=== PATIENT | female | born 1940 | race Caucasian/White ===

== ENCOUNTER 2017-09-25 04:41 | Emergency (ER) | payer MEDICARE, OTHER ==
[~2017-09-25] VITALS: Ht 162.6 cm; Wt 63.5 kg
[~2017-09-25 04:41] MED LIST: ASPI81EC; ATOR10; ATOR20 PO; DILT180; DOCSEN; ENAL2.5 PO; HYDACE5 PO; METO25ER PO; RISE35 PO; WARF3 PO; WARF4 PO; WARF5
[2017-09-25] MEDS ORDERED: Norco 5-325 Ta1 EACH PO (05:17)
== END 2017-09-25 05:29 | disposition home or self-care (01) ==
LOC: ER 04:41
DX: M54.41 Lumbago with sciatica, right side (principal); I10 Essential (primary) hypertension; I50.9 Heart failure, unspecified; Z86.73 Personal history of transient ischemic attack (TIA), and cerebral infarction without residual deficits; Z87.891 Personal history of nicotine dependence; Z79.899 Other long term (current) drug therapy; Z79.01 Long term (current) use of anticoagulants
CPT/HCPCS: 99283

== ENCOUNTER 2019-03-11 21:53 | Inpatient (IN) | payer MEDICARE, OTHER ==
[~2019-03-11] VITALS: Ht 162.6 cm; Wt 72.2 kg
[~2019-03-11 21:53] MED LIST changes: +Norco 5-325 Ta1 EACH PO
[2019-03-12 01:22] LABS: BASOPHILS ABSOLUTE AUTO 0.03 K/mm3 (0.00-0.23); BASOPHILS PERCENT AUTO 0 % (0-2); EOSINOPHILS ABSOLUTE AUTO 0.03 K/mm3 (0.00-0.68); EOSINOPHILS PERCENT AUTO 0 % (0-6); Hematocrit 43.7 % (33.0-51.0); Hemoglobin 14.7 g/dL (11.5-16.0); IMMATURE GRAN ABSOLUTE AUTO 0.07 K/mm3 (0.00-0.10); IMMATURE GRAN PERCENT AUTO 0 % (0-1); LYMPHOCYTES ABSOLUTE AUTO 0.69 K/mm3 (0.84-5.20); LYMPHOCYTES PERCENT AUTO 4 % (21-46); MONOCYTES ABSOLUTE AUTO 0.81 K/mm3 (0.16-1.47); MONOCYTES PERCENT AUTO 5 % (4-13); Mean Corpuscular HGB 31.7 pg (26.0-34.0); Mean Corpuscular HGB Conc 33.6 g/dL (31.5-36.5); Mean Corpuscular Volume 94 fL (80-100); NEUTROPHILS ABSOLUTE AUTO 15.08 K/mm3 (1.96-9.15); NEUTROPHILS PERCENT AUTO 90 % (41-73); Platelet Count 320 K/mm3 (150-400); RDW Coefficient Variation 12.1 % (11.7-14.2); RDW Standard Deviation 42.2 fL (35.1-46.3); Red Blood Cell Count 4.63 M/mm3 (3.80-5.20); White Blood Cell Count 16.71 K/mm3 (4.00-11.30)
[2019-03-12 01:37] LABS: International Normalized Ratio 2.18; Prothrombin Time Results 22.3 Sec (9.7-11.5)
[2019-03-12 01:39] LABS: Alanine Aminotransfer (ALT/SGP 45 U/L (12-78); Albumin, Blood 3.4 g/dL (3.4-5.0); Albumin/Globulin Ratio 0.8 (0.8-1.8); Alk Phos 67 U/L (50-136); Anion Gap 7 mmol/L (6-16); Aspartate Aminotrans (AST/SGOT 30 U/L (12-37); Bilirubin, Total 0.6 mg/dL (0.1-1.0); Blood Urea Nitrogen 13 mg/dL (8-24); Bun/Creatinine Ratio 14.7 (12.0-20.0); CO2, Blood 25 mmol/L (21-32); Calcium, Blood 8.8 mg/dL (8.5-10.1); Chloride, Blood 108 mmol/L (98-108); Creatinine, Blood 0.89 mg/dL (0.40-1.00); Globulin, Blood 4.2 g/dL (2.2-4.0); Glomerular Filtration Rate >60 (60-); Glucose, Blood 163 mg/dL (70-99); Potassium, Blood 4.2 mmol/L (3.5-5.5); Sodium, Blood 140 mmol/L (136-145); Total Protein, Blood 7.6 g/dL (6.4-8.2)
[2019-03-12] MEDS ORDERED: METF500 PO (02:03)
[2019-03-12] MEDS ORDERED: THERA1 EACH PO (02:07)
[2019-03-12] MEDS ORDERED: VITAMIN D33000 UNI1 PO (02:10)
--- NOTE | 2019-03-12 04:49 | NUR ---
SHIFT SUMMARY PT IS A/O X4. SHE HAS BEEN NPO PER ORDERS. HAS BEEN BEDREST D/T PAIN WITH MOVEMENT IN R HIP. PT WAS GIVEN FENTANYL FOR PAIN AND REPORTS FEELING COMFORTABLE AT REST. PT REPOSITIONED SEVERAL TIMES THIS SHIFT. ASSISTED WITH ADL'S PRN.
[2019-03-12 04:50] LABS: Hematocrit 42.3 % (33.0-51.0); Hemoglobin 13.9 g/dL (11.5-16.0); Mean Corpuscular HGB 31.7 pg (26.0-34.0); Mean Corpuscular HGB Conc 32.9 g/dL (31.5-36.5); Mean Platelet Volume 9.3 fL (9.1-12.4); Platelet Count 296 K/mm3 (150-400); RDW Coefficient Variation 12.1 % (11.7-14.2); Red Blood Cell Count 4.38 M/mm3 (3.80-5.20); White Blood Cell Count 16.25 K/mm3 (4.00-11.30)
[2019-03-12 04:56] LABS: Mean Corpuscular Volume 97 fL (80-100)
[2019-03-12 05:14] LABS: Alanine Aminotransfer (ALT/SGP 39 U/L (12-78); Albumin, Blood 3.1 g/dL (3.4-5.0); Albumin/Globulin Ratio 0.8 (0.8-1.8); Alk Phos 61 U/L (50-136); Anion Gap 8 mmol/L (6-16); Aspartate Aminotrans (AST/SGOT 35 U/L (12-37); Bilirubin, Total 0.8 mg/dL (0.1-1.0); Blood Urea Nitrogen 13 mg/dL (8-24); CO2, Blood 22 mmol/L (21-32); Calcium, Blood 8.3 mg/dL (8.5-10.1); Chloride, Blood 110 mmol/L (98-108); Creatinine, Blood 0.87 mg/dL (0.40-1.00); Globulin, Blood 3.8 g/dL (2.2-4.0); Glomerular Filtration Rate >60 (60-); Glucose, Blood 167 mg/dL (70-99); Potassium, Blood 4.5 mmol/L (3.5-5.5); Sodium, Blood 140 mmol/L (136-145); Total Protein, Blood 6.9 g/dL (6.4-8.2)
--- NOTE | 2019-03-12 18:23 | NUR ---
SUMMARY PT PAINFUL TO RIGHT GROIN AND BACK WITH INCREASED PAIN WITH MOVEMENT. PT DOZES AFTER PAIN MEDS GIVEN. PT AWAE OF PLANS FOR NPO AFTR 2400 AND REPEAT BLOOD WORK TO DETERMINE IF WILL HAVE SURGERY TOMORROW. PT VOIDING PER BEDPAN. AIMEE PO FOOD AND FLUIDS
[2019-03-12 21:24] LABS: International Normalized Ratio 2.44; Prothrombin Time Results 24.8 Sec (9.7-11.5)
--- NOTE | 2019-03-13 02:59 | NUR ---
While taking oral pain medication, patient aspirated on the water. patient was able to clear her air way within seconds. patient initially had exp wheeze that resolved within 5 mins. will continue to monitor.
[2019-03-13 04:27] LABS: BASOPHILS ABSOLUTE AUTO 0.04 K/mm3 (0.00-0.23); BASOPHILS PERCENT AUTO 0 % (0-2); EOSINOPHILS PERCENT AUTO 2 % (0-6); Hematocrit 39.9 % (33.0-51.0); Hemoglobin 13.2 g/dL (11.5-16.0); IMMATURE GRAN ABSOLUTE AUTO 0.05 K/mm3 (0.00-0.10); IMMATURE GRAN PERCENT AUTO 0 % (0-1); LYMPHOCYTES ABSOLUTE AUTO 1.28 K/mm3 (0.84-5.20); LYMPHOCYTES PERCENT AUTO 9 % (21-46); MONOCYTES PERCENT AUTO 10 % (4-13); Mean Corpuscular HGB 31.7 pg (26.0-34.0); Mean Corpuscular HGB Conc 33.1 g/dL (31.5-36.5); Mean Corpuscular Volume 96 fL (80-100); Mean Platelet Volume 8.9 fL (9.1-12.4); NEUTROPHILS PERCENT AUTO 78 % (41-73); Platelet Count 258 K/mm3 (150-400); RDW Coefficient Variation 12.4 % (11.7-14.2); RDW Standard Deviation 44.2 fL (35.1-46.3); Red Blood Cell Count 4.16 M/mm3 (3.80-5.20); White Blood Cell Count 14.27 K/mm3 (4.00-11.30)
[2019-03-13 04:40] LABS: International Normalized Ratio 1.66
[2019-03-13 04:43] LABS: Alanine Aminotransfer (ALT/SGP 33 U/L (12-78); Albumin, Blood 2.6 g/dL (3.4-5.0); Albumin/Globulin Ratio 0.7 (0.8-1.8); Alk Phos 54 U/L (50-136); Anion Gap 5 mmol/L (6-16); Aspartate Aminotrans (AST/SGOT 26 U/L (12-37); Bilirubin, Total 1.3 mg/dL (0.1-1.0); Blood Urea Nitrogen 13 mg/dL (8-24); Bun/Creatinine Ratio 15.1 (12.0-20.0); CO2, Blood 24 mmol/L (21-32); Calcium, Blood 7.9 mg/dL (8.5-10.1); Chloride, Blood 109 mmol/L (98-108); Creatinine, Blood 0.86 mg/dL (0.40-1.00); Globulin, Blood 3.8 g/dL (2.2-4.0); Glomerular Filtration Rate >60 (60-); Glucose, Blood 140 mg/dL (70-99); Potassium, Blood 4.3 mmol/L (3.5-5.5); Sodium, Blood 138 mmol/L (136-145); Total Protein, Blood 6.4 g/dL (6.4-8.2)
--- NOTE | 2019-03-13 04:53 | NUR ---
PATIENT MEDICATED PER EMAR WITH MODERATE RESULTS THAT DID ALLOW PATIENT TO GET 3-4 HOURS OF SLEEP. AFTER INCIDENT OF CHOKING WITH WATER, PATIENT IS NOW ON 2L NC, BIOX 93%. NON-PRODUCTIVE OCCASIONAL COUGH. DIFFICULT FOR PT TO FIND A POSITION OF COMFORT, AT TIMES HER BACK PAIN WAS MORE THAN HER HIP PAIN. USING BEDPAN WITH SOME DIFFICULTY DUE TO RT HIP FX. NO OTHER ACUTE CHANGES.
[2019-03-13 05:28] LABS: Prothrombin Time Results 17.3 Sec (9.7-11.5)
--- NOTE | 2019-03-13 18:22 | NUR ---
SHIFT SUMMARY PATIENT STATES BACK/ L HIP PAIN AT TOLERABLE LEVEL W/PO AND IV PAIN MED. CIRC CHECKS TO RLE WNL. TAKING PO. PO FLUIDS ENCOURAGED. HOSPITALIST CALLED AND MESSAGE LEFT FOR IVF ORDER; AWAITING REPLY. REPOSITIONED TOLERATED. SPOUSE AND FAMILY AT BEDSIDE T/O SHIFT. NO ACUTE CHANGES OR C/O. SPOKE W/HOSPITALIST EARLIER IN SHIFT- NO ORDER FOR VIT K AT THIS TIME. RECHECK INR IN AM.
[2019-03-14 04:36] LABS: BASOPHILS ABSOLUTE AUTO 0.02 K/mm3 (0.00-0.23); BASOPHILS PERCENT AUTO 0 % (0-2); EOSINOPHILS ABSOLUTE AUTO 0.52 K/mm3 (0.00-0.68); EOSINOPHILS PERCENT AUTO 4 % (0-6); Hematocrit 38.6 % (33.0-51.0); Hemoglobin 12.9 g/dL (11.5-16.0); IMMATURE GRAN ABSOLUTE AUTO 0.05 K/mm3 (0.00-0.10); IMMATURE GRAN PERCENT AUTO 0 % (0-1); LYMPHOCYTES ABSOLUTE AUTO 1.32 K/mm3 (0.84-5.20); LYMPHOCYTES PERCENT AUTO 9 % (21-46); MONOCYTES ABSOLUTE AUTO 1.62 K/mm3 (0.16-1.47); MONOCYTES PERCENT AUTO 12 % (4-13); Mean Corpuscular HGB 31.6 pg (26.0-34.0); Mean Corpuscular HGB Conc 33.4 g/dL (31.5-36.5); Mean Corpuscular Volume 95 fL (80-100); Mean Platelet Volume 9.1 fL (9.1-12.4); NEUTROPHILS ABSOLUTE AUTO 10.44 K/mm3 (1.96-9.15); NEUTROPHILS PERCENT AUTO 75 % (41-73); Platelet Count 236 K/mm3 (150-400); RDW Coefficient Variation 12.2 % (11.7-14.2); RDW Standard Deviation 42.4 fL (35.1-46.3); Red Blood Cell Count 4.08 M/mm3 (3.80-5.20); White Blood Cell Count 13.97 K/mm3 (4.00-11.30)
[2019-03-14 04:54] LABS: International Normalized Ratio 1.16; Prothrombin Time Results 12.3 Sec (9.7-11.5)
[2019-03-14 04:59] LABS: Anion Gap 5 mmol/L (6-16); Blood Urea Nitrogen 11 mg/dL (8-24); Bun/Creatinine Ratio 13.9 (12.0-20.0); CO2, Blood 24 mmol/L (21-32); Calcium, Blood 8.1 mg/dL (8.5-10.1); Chloride, Blood 105 mmol/L (98-108); Creatinine, Blood 0.79 mg/dL (0.40-1.00); Glomerular Filtration Rate >60 (60-); Glucose, Blood 131 mg/dL (70-99); Potassium, Blood 4.2 mmol/L (3.5-5.5); Sodium, Blood 134 mmol/L (136-145)
--- NOTE | 2019-03-14 05:33 | NUR ---
PATIENT HAS HAD BETTER PAIN CONTROL THAN LAST NIGHT. SHE HAS RESTED BETWEEN NEEDING THE BEDPAN. NPO SINCE MIDNIGHT IN ANTICIPATION FOR SURGERY TODAY. nO ACUTE CHANGES.
--- NOTE | 2019-03-14 10:05 | NUR ---
PATIENT TO DAY SURGERY AT THIS TIME. FAMILY ACCOMPANYING.
--- NOTE | 2019-03-14 11:10 | NUR ---
1015 PT IN SDS VIA BED. AND DAUGHTER AT BEDSIDE.OXYGEN ON 3 L N/C LUNGS DECREASED. PRE OP TEACHING DONE. RIGHT HEARING AID LEFT IN EAR TO OR4 WITH CONTAINER. DENTURES LEFT IN CONTAINER SENT WITH PATIENT GLASSES TAKEN TO PACU.
--- NOTE | 2019-03-14 14:00 | NUR ---
PATIENT RETURNED TO ROOM FROM PACU AT THIS TIME. AWAKE, GROGGY. DENIES PAIN, NAUSEA. VSS. BIOX 96% ON 4L O2 PER NC. LS CLEAR. HR IRREG (HX AFIB.) BT'S HYPO. MOVES FEET; CIRC CHECKS WNL. R HIP WITH AQUACEL, D&I. CRYOTHERAPY AND PAS IN PLACE. CONT TO MONITOR.
--- NOTE | 2019-03-14 15:13 | NUR ---
PATIENT ADMIN NORCO 1 TAB FOR C/O R HIP 'BURNING' AT 1428. NOW STATES HIP NOT BURNING. PT IN TO SEE PATIENT. CONT TO MONITOR.
--- NOTE | 2019-03-14 16:55 | NUR ---
assumed care of pt, recvd report from previous RN Keely, pt sitting up in chair, a/0 x 4, pleasant/cooperative, denies pain, family in room, call light within reach
[2019-03-15 04:10] LABS: BASOPHILS ABSOLUTE AUTO 0.03 K/mm3 (0.00-0.23); BASOPHILS PERCENT AUTO 0 % (0-2); EOSINOPHILS ABSOLUTE AUTO 0.34 K/mm3 (0.00-0.68); EOSINOPHILS PERCENT AUTO 2 % (0-6); Hemoglobin 10.7 g/dL (11.5-16.0); IMMATURE GRAN ABSOLUTE AUTO 0.06 K/mm3 (0.00-0.10); IMMATURE GRAN PERCENT AUTO 0 % (0-1); LYMPHOCYTES ABSOLUTE AUTO 0.91 K/mm3 (0.84-5.20); LYMPHOCYTES PERCENT AUTO 6 % (21-46); MONOCYTES ABSOLUTE AUTO 1.29 K/mm3 (0.16-1.47); MONOCYTES PERCENT AUTO 9 % (4-13); Mean Corpuscular HGB 31.5 pg (26.0-34.0); Mean Corpuscular HGB Conc 33.4 g/dL (31.5-36.5); Mean Corpuscular Volume 94 fL (80-100); Mean Platelet Volume 9.6 fL (9.1-12.4); NEUTROPHILS ABSOLUTE AUTO 11.62 K/mm3 (1.96-9.15); NEUTROPHILS PERCENT AUTO 82 % (41-73); Platelet Count 176 K/mm3 (150-400); RDW Coefficient Variation 12.1 % (11.7-14.2); RDW Standard Deviation 41.8 fL (35.1-46.3); White Blood Cell Count 14.25 K/mm3 (4.00-11.30)
[2019-03-15 04:25] LABS: Anion Gap 7 mmol/L (6-16); Blood Urea Nitrogen 19 mg/dL (8-24); Bun/Creatinine Ratio 20.9 (12.0-20.0); CO2, Blood 21 mmol/L (21-32); Chloride, Blood 108 mmol/L (98-108); Creatinine, Blood 0.91 mg/dL (0.40-1.00); Glomerular Filtration Rate >60 (60-); Glucose, Blood 133 mg/dL (70-99); Potassium, Blood 4.3 mmol/L (3.5-5.5); Sodium, Blood 136 mmol/L (136-145)
--- NOTE | 2019-03-15 04:25 | NUR ---
SHIFT SUMMARY PT IS A/O X4 BUT SEEMS CONFUSED/FORGETFUL AT TIMES. BED ALARM HAS BEEN ON. PT IS VOIDING. NO BM THIS SHIFT. TOLERATING PO INTAKE. DRESSING TO HIP CDI. PT NEEDS 1-2 ASSIST WITH WALKER TO COMMODE. HAS BEEN UP TO COMMODE THIS SHIFT. ASSISTED WITH ADL'S PRN.
--- NOTE | 2019-03-15 15:15 | NUR ---
SHORNESS OF BREATH DR. BURT NOTIFIED THAT PT BECAME SHORT OF BREATH DURING HER AFTERNOON SESSION OF THERAPY. SHE STATED SOB DID NOT DECREASE WITH REST. PT REPORTED SHE HAS BEEN USING HER INCENTIVE SPIROMETER T/O THE DAY. PT WAS ASKED TO DEMONSTRATE USE, SHE WAS BLOWING INTO THE IS AND BREATHING IN THROUGH HER NOSE. PT WAS EDUCATED ON PROPER IS USE. LUNG SOUNDS WERE CLEAR EXCEPT FOR THE RIGHT LOWER LOBE, FINE CRACKLES WERE NOTED. NO EDEMA GENERALIZED OR PITTING. LASIX ORDERED PER DR. BURT. WILL CONTINUE TO MONITOR.
--- NOTE | 2019-03-15 17:06 | NUR ---
EMESIS PT VOMITED THIS AFTERNOON. PT ESTIMATES SHE HAS NOT HAD A BOWEL MOVEMENT SINCE 03/09/19, APPROXIMATELY 3 DAYS PRIOR TO ADMIT. MOM GIVEN THIS AM. DR. BURT NOTIFIED. WILL GIVE BOWEL CARE ORDERED.
--- NOTE | 2019-03-16 05:47 | NUR ---
shift summary: vss, no acute changes, pt remained a/0 x 4, pleasant/cooperative, up to bathroom with fww and gait belt with standby assist. pt reports pain controlled to a tolerable level with analgesia per mar, appears to be sleeping on nurse rounding. no n/v, tolerated PO intake in small amounts at dinnertime. pt uses call light appropriately. operative hip aquacel c/d/i, cap refill >3 seconds
--- NOTE | 2019-03-16 18:18 | NUR ---
SHIFT SUMMARY PAIN HAS BEEN MANAGED WITH TYLENOL THIS SHIFT, PT HAS DECLINED THE NEED FOR OXYCODONE. SHE IS A 1 ASSIST WITH AMBULATION. PT HAS BEEN USING HER INCENTIVE SPIROMETER BUT REQUIRES REMINDERS, FAMILY IS ASSISTING WITH REMINDING PT. SHORNESS OF BREATH HAS DECREASED SINCE THIS MORNING. APPETITE HAS BEEN DECREASED AND SHE HAS HAD SOME NAUSEA. PT VOMITED A SMALL AMOUNT X1 THIS MORNING AND WAS GIVEN ZOFRAN. PT STARTED ON PRILOSEC FOR ACID REFLUX TODAY. FAMILY HAS BEEN PRESENT AND SUPPORTIVE. VSS. WILL MONITOR UNTIL REPORT TO ONCOMING RN.
[2019-03-17 04:20] LABS: International Normalized Ratio 1.1; Prothrombin Time Results 11.7 Sec (9.7-11.5)
--- NOTE | 2019-03-17 05:02 | NUR ---
shift summary: vss, no acute changes. pt tolerated PO intake with no n/v this shift, had vomited this AM and reports she wants to "take it easy" with eating, has drank an ensure. pt had BM x 2 this shift, passing flatus, voiding >500 ml. pt ambulated in hallway x 1. operative site aquacel c/d/i, no shadowing. pedal pulses strong, cap refill <3 sec. pt remained a/0 x 4, pleasant/cooperative
--- NOTE | 2019-03-17 07:44 | NUR ---
PT WORKING WITH THERAPY.
[2019-03-17] MEDS ORDERED: SENNA LAXATIVE8.6 MG PO (10:46)
[2019-03-17] MEDS ORDERED: OMEPRAZOLE20 MG PO (10:50)
[2019-03-17] MEDS ORDERED: ROXICODONE5 MG PO (10:50)
[2019-03-17] MEDS ORDERED: MIRALAX17 G1 PO (10:51)
--- NOTE | 2019-03-17 11:45 | NUR ---
PT RECENTLY SEEN BY OT AND HOME HEALTH.
--- NOTE | 2019-03-17 14:15 | NUR ---
DISCHARGE: PT EATING AND DRINKING, VOIDING, HAD BM LAST NIGHT. PT REPORTS INDIGESTION MUCH BETTER. PT BEEN CLEARED BY THERAPY TO GO HOME WITH H.H.. PT REPORTS PAIN CONTROLLED ON PO PAIN MEDICATION. PT/FAMILY REPORTS HAVING APPR EQUIP AT HOME. PT/FAMILY REPORTS WILL TAKE COUMADIN ORDERED AT HOME. PT/FAMILY REPORTS UNDERSTANDING OF DISCHARGE INSTRUCTIONS INCLUDING DRESSINGS AND POLAR PAC. PT SENT WITH POLAR PAC AND DRESSING SUPPLIES. PT HAS NO IV IN PLACE.
== END 2019-03-17 14:31 | disposition home or self-care (01) | DRG 470 ==
LOC: ER 21:53 → SURS 21:54 → ER 03-12 01:33 → SURS 03-12 01:45
PROVIDERS: Emergency Medicine; Hospitalist; Internal Medicine; Orthopaedic Surgery; ADMIT Internal Medicine
PROC: 0SR9049 Replacement of Right Hip Joint with Ceramic on Polyethylene Synthetic Substitute, Cemented, Open Approach (ICD-10-PCS; principal; 2019-03-14 12:30)
DX: S72.011A Unspecified intracapsular fracture of right femur, initial encounter for closed fracture (principal); I48.19 Other persistent atrial fibrillation; W19.XXXA Unspecified fall, initial encounter; Y92.59 Other trade areas as the place of occurrence of the external cause; I10 Essential (primary) hypertension; G31.84 Mild cognitive impairment of uncertain or unknown etiology; E78.5 Hyperlipidemia, unspecified; E11.9 Type 2 diabetes mellitus without complications; E66.9 Obesity, unspecified; Z68.30 Body mass index [BMI] 30.0-30.9, adult; Z87.891 Personal history of nicotine dependence; Z86.73 Personal history of transient ischemic attack (TIA), and cerebral infarction without residual deficits; Z79.01 Long term (current) use of anticoagulants; Z79.899 Other long term (current) drug therapy
CPT/HCPCS: 36415; 71045; 71046; 72170; 73502; 80048; 80053; 84484; 85025; 85027; 85610; 88305; 88311; 93005; 93010; 96374; 96375; 96376; 97110; 97112; 97116; 97162; 97165; 97530; 97535; 99285-25; A9270-GY; C1713; C1776; J0171; J0690; J0735; J1170; J1650; J1885; J2370; J2405; J2704; J2765; J2795; J3010; J3430; J7030; J7120

== ENCOUNTER → 2019-05-05 | Outpatient (CLI) | payer MEDICARE, OTHER ==
[~2019-05-05] MED LIST changes: +METF500 PO; +MIRALAX17 G1 PO; +OMEPRAZOLE20 MG PO; +ROXICODONE5 MG PO; +SENNA LAXATIVE8.6 MG PO; +THERA1 EACH PO; +VITAMIN D33000 UNI1 PO
[2019-05-05 11:56] LABS: Creatinine, Urine Random 83.9 mg/dL (27.00-270.00)
[2019-05-05 11:59] LABS: Microalb/Creat Ratio UR, Rand 15.375 mg/g (0.000-30.000); Microalbumin, Random Urine 12.9 mg/L (0.000-20.000)
== END | disposition home or self-care (01) ==
LOC: LAB 09:00 → LAB SHORT 09:00
PROVIDERS: Student in an Organized Health Care Education/Training Program
DX: E11.9 Type 2 diabetes mellitus without complications (principal)
CPT/HCPCS: 82043; 82570

== ENCOUNTER 2024-03-08 18:38 | Emergency (ER) | payer MEDICARE, OTHER ==
[~2024-03-08] VITALS: Ht 157.5 cm; Wt 54.4 kg
[~2024-03-08 18:38] MED LIST changes: +Daily Multiple1 EACH PO; +SENN187 PO; -THERA1 EACH PO; +Vitamin D2000 UNIT PO
[2024-03-08 20:40] LABS: Source, Urine Clean Catch
[2024-03-08 20:46] LABS: Bilirubin, Urine Neg (Neg); Blood, Urine 2+ (Neg); Glucose Qualitative, Urine Neg (Neg); Ketones, Urine Neg (Neg); Leukocyte Esterase, Urine 1+ (Neg); Nitrite, Urine Pos (Neg); Protein, Urine Neg (Neg); Urobilinogen, Urine NORM (Normal)
[2024-03-08 20:55] LABS: Appearance, Urine Clear (Clear); Color, Urine Pale Yellow (P-Yellow)
[2024-03-08 20:56] LABS: Bacteria Many /hpf; Squamous Epithelial Cells Few /hpf (Few)
[2024-03-08] MEDS ORDERED: Cephalexin Monohydrate 500 MG Cap PO ONE (21:05)
[2024-03-08] MEDS ORDERED: CEPH500 PO (21:10)
[2024-03-08 21:15] VITALS: BP 180/95
== END 2024-03-08 21:26 | disposition home or self-care (01) ==
LOC: ER 18:38
PROVIDERS: Student in an Organized Health Care Education/Training Program
DX: S00.03XA Contusion of scalp, initial encounter (principal); W18.30XA Fall on same level, unspecified, initial encounter; I10 Essential (primary) hypertension; I48.91 Unspecified atrial fibrillation; N30.00 Acute cystitis without hematuria; Z79.01 Long term (current) use of anticoagulants; Z79.84 Long term (current) use of oral hypoglycemic drugs; Z87.891 Personal history of nicotine dependence
CPT/HCPCS: 70450; 81001; A9270

== ENCOUNTER 2024-12-24 22:07 | Emergency (ER) | payer MEDICARE, OTHER ==
[~2024-12-24] VITALS: Ht 157.5 cm; Wt 61.2 kg
[~2024-12-24 22:07] MED LIST changes: +CEPH500 PO
[2024-12-24] MEDS ORDERED: NS 1,000 ML IV SCH (23:05)
[2024-12-24 23:12] LABS: BASOPHILS ABSOLUTE AUTO 0.06 K/mm3 (0.00-0.23); BASOPHILS PERCENT AUTO 1 % (0-2); EOSINOPHILS ABSOLUTE AUTO 0.21 K/mm3 (0.00-0.68); EOSINOPHILS PERCENT AUTO 2 % (0-6); Hematocrit 37.0 % (33.0-51.0); Hemoglobin 12.3 g/dL (11.5-16.0); IMMATURE GRAN ABSOLUTE AUTO 0.04 K/mm3 (0.00-0.10); IMMATURE GRAN PERCENT AUTO 0 % (0-1); LYMPHOCYTES ABSOLUTE AUTO 2.13 K/mm3 (0.84-5.20); LYMPHOCYTES PERCENT AUTO 20 % (21-46); MONOCYTES ABSOLUTE AUTO 0.98 K/mm3 (0.16-1.47); MONOCYTES PERCENT AUTO 9 % (4-13); Mean Corpuscular HGB Conc 33.2 g/dL (31.5-36.5); Mean Corpuscular Volume 94 fL (80-100); NEUTROPHILS ABSOLUTE AUTO 7.50 K/mm3 (1.96-9.15); NEUTROPHILS PERCENT AUTO 69 % (41-73); NRBC ABSOLUTE 0.00 K/mm3 (0.00-0.02); NRBC Auto 0.0 /100 WBC (0.0-0.2); Platelet Count 371 K/mm3 (150-400); RDW Coefficient Variation 12.1 % (11.7-14.2); RDW Standard Deviation 41.5 fL (35.1-46.3)
[2024-12-24 23:44] LABS: Alanine Aminotransfer (ALT/SGP 21.0 U/L (12-78); Albumin, Blood 3.4 g/dL (3.4-5.0); Albumin/Globulin Ratio 1.0 (0.8-1.8); Anion Gap 9.0 mmol/L (3-11); Aspartate Aminotrans (AST/SGOT 28.0 U/L (12-37); Bilirubin, Total 0.6 mg/dL (0.1-1.0); Blood Urea Nitrogen 20.0 mg/dL (8-24); CO2, Blood 24.0 mmol/L (21-32); Calcium, Blood 8.8 mg/dL (8.5-10.1); Chloride, Blood 109.0 mmol/L (98-108); Creatinine, Blood 1.05 mg/dL (0.40-1.00); Globulin, Blood 3.5 g/dL (2.2-4.0); Glucose, Blood 141.0 mg/dL (70-99); Potassium, Blood 4.6 mmol/L (3.5-5.5); Sodium, Blood 137.0 mmol/L (136-145); Total Protein, Blood 6.9 g/dL (6.4-8.2)
[2024-12-25] LABS: Prothrombin Time Results 12.9 Sec (9.7-11.5)
[2024-12-25] MEDS ORDERED: NS 1,000 ML IV SCH (00:35)
[2024-12-25 02:30] LABS: Source, Urine Clean Catch
[2024-12-25 02:36] LABS: Bilirubin, Urine Neg (Neg); Glucose Qualitative, Urine Neg (Neg); Ketones, Urine Neg (Neg); Leukocyte Esterase, Urine 1+ (Neg); Protein, Urine Neg (Neg); Specific Gravity, Urine 1.010 (1.003-1.022); Urobilinogen, Urine NORM (Normal)
[2024-12-25 03:07] LABS: Hematocrit 34.5 % (33.0-51.0); Hemoglobin 11.5 g/dL (11.5-16.0)
[2024-12-25 03:07] LABS: Color, Urine Pale Yellow (P-Yellow)
[2024-12-25 03:08] LABS: Red Blood Cells, Urine 0-2 /hpf (0-2); White Blood Cells, Urine 0-2 /hpf (0-5)
[2024-12-25] MEDS ORDERED: CefTRIAXone Sodium 1,000 MG in NS 50 ML IV ONE (03:30)
[2024-12-25] MEDS ORDERED: CEPH500 PO (04:59)
[2024-12-25 05:00] VITALS: BP 157/67
== END 2024-12-25 05:18 | disposition home or self-care (01) ==
LOC: ER 22:07
PROVIDERS: Emergency Medicine
DX: K92.1 Melena (principal); K57.30 Diverticulosis of large intestine without perforation or abscess without bleeding; I95.9 Hypotension, unspecified; E86.0 Dehydration; K80.20 Calculus of gallbladder without cholecystitis without obstruction; N39.0 Urinary tract infection, site not specified; I10 Essential (primary) hypertension; I48.91 Unspecified atrial fibrillation; Z86.73 Personal history of transient ischemic attack (TIA), and cerebral infarction without residual deficits; Z87.891 Personal history of nicotine dependence; Z79.01 Long term (current) use of anticoagulants; Z79.84 Long term (current) use of oral hypoglycemic drugs; Z79.899 Other long term (current) drug therapy; Z59.89 Other problems related to housing and economic circumstances
CPT/HCPCS: 36430; 74174; 80053; 81001; 85014; 85018; 85025; 85610; 85730; 86850; 86900; 86901; 86923; 87077; 87086; 87186; 96361; 96365; 99285-25; J0696; J7030; P9016; Q9967